=== PATIENT | female | born 2000 | race Caucasian/White ===

== ENCOUNTER 2024-04-24 17:41 | Emergency (ER) | payer OTHER ==
[~2024-04-24] VITALS: Ht 177.8 cm; Wt 112.5 kg
[2024-04-24 18:13] VITALS: BP 158/87; PULSE 94; RESP 18; TEMP 97.4; O2SAT 100
[2024-04-24] MEDS: ONDANSETRON 4 MG/2 ML VIAL IVP ONE ×2 (19:37→20:28)
[2024-04-24 19:42] LABS: APPEARANCE,URINE CLOUDY (CLEAR); BILIRUBIN,URINE 1+ (NEGATIVE); BLOOD, URINE NEGATIVE (NEGATIVE); COLOR,URINE ORANGE (YELLOW); LEUKOCYTE ESTERASE ,URINE 1+ (NEGATIVE); NITRITE, URINE NEGATIVE (NEGATIVE); PROTEIN,URINE 1+ (NEGATIVE); UGLUCOSE NEGATIVE (NEGATIVE)
[2024-04-24 19:46] LABS: BASOPHILS % (AUTO) 0.1 % (0.0-2.0); HEMATOCRIT 27.3 % (36-48); HEMOGLOBIN 8.4 g/dL (12.0-16.0); LYMPHOCYTES # (AUTO) 0.8 K/uL (2.5-16.5); MEAN CORPUSCULAR HEMOGLOBIN 21 pg (27-31); MEAN CORPUSCULAR HGB CONC 31 g/dL (33-37); MEAN CORPUSCULAR VOLUME 67.1 fL (80-94); MONOCYTES # (AUTO) 0.5 K/uL (0.8-1.0); MONOCYTES % (AUTO) 3.3 % (1.7-9.3); NEUTROPHILS # (AUTO) 14.5 K/uL (1.8-7.7); NEUTROPHILS % (AUTO) 91.6 % (42.2-75.2); PLATELET COUNT (AUTO) 290 K/uL (140-450); RED BLOOD CELL COUNT(AUTO) 4.07 MIL/uL (4.20-5.40); RED CELL DISTRIBUTION WIDTH 17.8 % (11.6-13.7); WHITE BLOOD COUNT (AUTO) 15.9 K/uL (4.8-10.8)
[2024-04-24 19:59] LABS: ICTOTEST NEGATIVE (NEGATIVE)
[2024-04-24 20:00] LABS: BACTERIA,URINE >30 (MANY) /HPF (None Seen); RBC,URINE 0-5 /HPF (0-5)
[2024-04-24 20:01] LABS: SQUAMOUS EPITHELIAL CELL,UR 0-3 (FEW) /LPF (0-3 (FEW))
[2024-04-24 20:02] LABS: ANION GAP 15.9 (8-16); CALCIUM 8.1 mg/dL (8.5-10.1); CARBON DIOXIDE 24.5 mmol/L (21-32); CREATININE 0.5 mg/dL (0.6-1.3); POTASSIUM 3.4 mmol/L (3.5-5.1)
[2024-04-24 20:06] LABS: ALBUMIN 2.5 g/dL (3.4-5.0); BILIRUBIN,DIRECT 0.1 mg/dL (0.0-0.3); TOTAL BILIRUBIN 0.3 mg/dL (0.0-1.0); TOTAL PROTEIN, SERUM 7.6 g/dL (6.4-8.2)
[2024-04-24 20:27] VITALS: O2SAT 99
[2024-04-24] MEDS: NACL 0.9% 1,000 ML IV ONE (20:28)
[2024-04-24] MEDS ORDERED: cefTRIAXone 2,000 MG VIAL ONE (20:29)
[2024-04-24] MEDS: MORPHINE SULFATE 4 MG/ML SYR IVP ONE ×2 (20:30→22:39)
[2024-04-24] MEDS: cefTRIAXone 2,000 MG in DEXTROSE 5% 100 ML IV ONE (20:30)
[2024-04-24] MEDS ORDERED: ALUMINUM HYD/MAG/SIMETHICONE 30 ML UDC ONE (21:34)
[2024-04-24] MEDS ORDERED: DICYCLOMINE HCL LIQUID 10 MG/5 ML UDC ONE (21:34)
[2024-04-24] MEDS: DICYCLOMINE HCL LIQUID 20 MG, ALUMINUM HYD/MAG/SIMETHICONE 30 ML, LIDOCAINE VISCOUS 2% ... PO ONE (21:56)
[2024-04-24] MEDS ORDERED: ONDANSETRON 4 MG/2 ML VIAL ONE (22:33)
[2024-04-24] MEDS: METOCLOPRAMIDE 10 MG/2 ML INJ VIAL IVP ONE (22:38)
[2024-04-24 22:46] LABS: FLU A ANTIGEN negative (NEGATIVE)
[2024-04-24 22:47] LABS: FLU B ANTIGEN NEGATIVE (NEGATIVE)
[2024-04-25] MEDS ORDERED: ONDA-188 PO (00:26)
[2024-04-25] MEDS ORDERED: CEFP200T20 PO (00:26)
[2024-04-25 00:32] VITALS: BP 128/57; PULSE 83; RESP 16; TEMP 98.5; O2SAT 99
== END 2024-04-25 00:32 | disposition home or self-care (01) ==
LOC: MED 17:41
DX: O21.8 Other vomiting complicating pregnancy (principal); O26.892 Other specified pregnancy related conditions, second trimester; R10.13 Epigastric pain; O23.92 Unspecified genitourinary tract infection in pregnancy, second trimester; R82.71 Bacteriuria; Z20.822 Contact with and (suspected) exposure to COVID-19; Z3A.26 26 weeks gestation of pregnancy; Z79.899 Other long term (current) drug therapy
CPT/HCPCS: 36415; 71045; 80048; 80076; 81001; 83690; 85025; 87040; 87086; 87426; 87804; 96365; 96375; 96376; 99284; J0696; J2270; J2405; J2765; J7030; Q0092